=== PATIENT | male | born 1945 | race Hispanic/Latino ===

== ENCOUNTER 2022-12-19 14:07 | Inpatient (IN) | payer OTHER ==
--- NOTE | 2022-12-19 15:16 | RAD REPORT ---
EXAM DESCRIPTION: RAD - Chest Single View - 12/19/2022 3:11 pm CLINICAL HISTORY: Confusion/weakness Chest pain. COMPARISON: No comparisons FINDINGS: Portable technique limits examination quality. The lungs are grossly clear. The heart is normal in size. No displaced fractures.Postsurgical changes of prior CABG. IMPRESSION: No acute intrathoracic process suspected.
--- NOTE | 2022-12-19 15:22 | RAD REPORT ---
EXAM DESCRIPTION: CT - Head Brain Wo Cont - 12/19/2022 3:14 pm CLINICAL HISTORY: CONFUSED Headache, drowsiness COMPARISON: No comparisons TECHNIQUE: All CT scans are performed using dose optimization technique as appropriate and may inclu de automated exposure control or mA/KV adjustment according to patient size. FINDINGS: No intracranial hemorrhage, hydrocephalus or extra-axial fluid collection.Moderate brain a trophy.No areas of brain edema or evidence of midline shift. The paranasal sinuses and mastoids are clear. The calvarium is intact. IMPRESSION: No acute intracranial abnormality.
[2022-12-19 15:29] LABS: Absolute Lymphocytes (CBC) 0.7 K/uL (0.7-4.9); Lymphocytes % 9.4 % (15.3-44.8); MCV 91.3 fL (80-100); MPV 9.2 fL (7.6-11.3); Platelets 119 thou/uL (152-406); RBC Red Blood Cell Count 3.95 M/uL (4.33-5.43)
[2022-12-19 15:33] LABS: Protime INR 1.35
[2022-12-19 15:49] LABS: Albumin 3.7 g/dL (3.4-5.0); Bilirubin Direct 0.3 mg/dL (0-0.2); Bilirubin Indirect, Calculated 0.5 mg/dL (0.2-0.8); Bilirubin Total 0.8 mg/dL (0.2-1.0); Potassium 3.9 mEq/L (3.5-5.1); Troponin High Sensitivity 19.1 pg/mL (<58.9)
[2022-12-19 16:43] LABS: Specific Gravity 1.015 (1.005-1.030); Urine Bacteria None Seen /HPF (<20); Urine Bilirubin NEGATIVE (Negative); Urine Blood 1+ (Negative); Urine Clarity Turbid (Clear); Urine Color Yellow (Yellow); Urine Glucose TRACE (Negative); Urine Mucus Slight /HPF (None Seen); Urine Protein TRACE (Negative); Urine RBC <5 /HPF (None Seen); Urine Urobilinogen 2+ (Normal)
--- NOTE | 2022-12-19 16:55 | EDPHYS ---
Physician Documentation [facility] Name: Chaparro Palencia Age: 77 yrs Sex: Male : 1945 Arrival Date: 12/19/2022 Time: 14:07 Bed 16 Private MD: ED Physician Daphne Claire HPI: 12/19 16:07 This 77 yrs old Male presents to ER via Wheelchair with complaints of CONFUSSION, Fall sp3 Injury - 3 years ago. 16:07 77-year-old male with a history of diabetes, hypertension, hyperlipidemia who is from [address] here visiting his son who is a local worker presents to the ED with 24 to 48 hours of increased generalized weakness and episodes of confusion where he is asking odd questions not consistent with the active conversation. Symptoms come and go and have currently resolved. No dysarthria reported. No focal neurological symptoms reported either including weakness or abnormal gait. He did have to be assisted to the restroom yesterday which is not typical. Patient denies any headache, changes in vision, fever, neck pain, chest pain, shortness of breath, abdominal pain, nausea, vomiting, diarrhea, rash, numbness or tingling, changes in bowel or bladder patterns, or any other signs or symptoms on ROS at this time.. Historical: - Allergies: 14:31 No Known Allergies; nj1 - PMHx: 14:31 Diabetes mellitus; Hypertensive disorder; Hypercholesterolemia; nj1 - PSHx: 14:31 Coronary artery bypass graft; nj1 14:32 Appendectomy; nj1 - Immunization history:: Client reports receiving the 2nd dose of the Covid vaccine. - Social history:: Smoking status: Patient denies any tobacco usage or history of. ROS: 16:09 Eyes: Negative for injury, pain, redness, and discharge, ENT: Negative for injury, sp3 pain, and discharge, Neck: Negative for injury, pain, and swelling, Cardiovascular: Negative for chest pain, palpitations, and edema, Respiratory: Negative for shortness of breath, cough, wheezing, and pleuritic chest pain, Abdomen/GI: Negative for abdominal pain, nausea, vomiting, diarrhea, and constipation, Back: Negative for injury and pain, MS/Extremity: Negative for injury and deformity, Skin: Negative for injury, rash, and discoloration, Psych: Negative for depression, anxiety, suicide ideation, homicidal ideation, and hallucinations, Allergy/Immunology: Negative for hives, rash, and allergies, Endocrine: Negative for neck swelling, polydipsia, polyuria, polyphagia, and marked weight changes, Hematologic/Lymphatic: Negative for swollen nodes, abnormal bleeding, and unusual bruising. 16:09 All other systems are negative. Exam: 16:09 Constitutional: This is a well developed, well nourished patient who is awake, alert, sp3 and in no acute distress. Head/Face: Normocephalic, atraumatic. Eyes: Pupils equal round and reactive to light, extra-ocular motions intact. Lids and lashes normal. Conjunctiva and sclera are non-icteric and not injected. Cornea within normal limits. Periorbital areas with no swelling, redness, or edema. Neck: Trachea midline, no thyromegaly or masses palpated, and no cervical lymphadenopathy. Supple, full range of motion without nuchal rigidity, or vertebral point tenderness. No Meningismus. Chest/axilla: Normal chest wall appearance and motion. Nontender with no deformity. No lesions are appreciated. Cardiovascular: Regular rate and rhythm with a normal S1 and S2. No gallops, murmurs, or rubs. Normal PMI, no JVD. No pulse deficits. Respiratory: Lungs have equal breath sounds bilaterally, clear to auscultation and percussion. No rales, rhonchi or wheezes noted. No increased work of breathing, no retractions or nasal flaring. Abdomen/GI: Soft, non-tender, with normal bowel sounds. No distension or tympany. No guarding or rebound. No evidence of tenderness throughout. Back: No spinal tenderness. No costovertebral tenderness. Full range of motion. Skin: Warm, dry with normal turgor. Normal color with no rashes, no lesions, and no evidence of cellulitis. MS/ Extremity: Pulses equal, no cyanosis. Neurovascular intact. Full, normal range of motion. Neuro: Awake and alert, GCS 15, oriented to person, place, time, and situation. Cranial nerves II-XII grossly intact. Motor strength 5/5 in all extremities. Sensory grossly intact. Cerebellar exam normal. Normal gait. Psych: Awake, alert, with orientation to person, place and time. Behavior, mood, and affect are within normal limits. 16:09 ECG was reviewed by the Attending Physician. EKG demonstrates normal sinus rhythm at 65 bpm with normal intervals, normal QRS, normal axis, normal ST/T-segment's without evidence of acute ischemia. Vital Signs: 14:27 BP 120 / 50; Pulse 73; Resp 17; Temp 98.4(O); Pulse Ox 99% on R/A; Weight 51.26 kg; nj1 Height 5 ft. 8 in. ; 15:13 BP 111 / 42; Pulse 66; Resp 16; Pulse Ox 98% on R/A; db 16:19 BP 120 / 48; Pulse 59; Resp 16; Pulse Ox 99% on R/A; db 17:00 BP 145 / 60; Pulse 66; Resp 16; Pulse Ox 100% on R/A; db 18:43 BP 140 / 44; Pulse 75; Resp 16; Pulse Ox 100% on R/A; db 14:27 Body Mass Index 17.18 (51.26 kg, 172.72 cm) nj1 MDM: 14:45 Patient medically screened. sp3 16:10 Data reviewed: vital signs, nurses notes, lab test result(s), EKG, radiologic studies. sp3 ED course: 77-year-old male with PMH above now presents with off-and-on symptoms of generalized weakness and confusion. No focal neurodeficits noted. I am not highly suspicious for stroke or other embolic event. Will obtain broad work-up including CT scan of the head, laboratory values, chest x-ray, urine analysis, infectious swabs including COVID and flu. Patient has a normal exam currently. If work-up is negative will consider 23-hour ops versus discharge depending on follow-up conditions and options the patient has. Other interventions will be added as indicated.. 16:52 ED course: CT and work-up demonstrate no significant findings. Given his history of sp3 abnormal behavior, MRI and neurologic consult is warranted. Will admit patient to hospitalist service and consult Dr. Powell.. 12/19 14:57 Order name: Basic Metabolic Panel; Complete Time: 16:27 sp3 12/19 14:57 Order name: CBC with Diff; Complete Time: 15:37 sp3 12/19 14:57 Order name: LFT's; Complete Time: 16:27 sp3 12/19 14:57 Order name: Magnesium; Complete Time: 16:27 sp3 12/19 14:57 Order name: NT PRO-BNP; Complete Time: 16:27 sp3 12/19 14:57 Order name: PT-INR; Complete Time: 15:37 sp3 12/19 14:57 Order name: Troponin HS; Complete Time: 16:27 sp3 12/19 14:57 Order name: UAM; Complete Time: 16:45 sp3 12/19 15:37 Order name: SARS-COV-2 RT PCR; Complete Time: 17:45 sp3 12/19 15:37 Order name: Flu; Complete Time: 16:27 sp3 12/19 18:01 Order name: Lipid Profile EDMS 12/19 18:01 Order name: Hemoglobin A1c EDMS 12/19 18:01 Order name: CBC with Automated Diff EDMS 12/19 18:01 Order name: CBC with Automated Diff EDMS 12/19 18:01 Order name: Comprehensive Metabolic Panel EDMS 12/19 18:01 Order name: Comprehensive Metabolic Panel EDMS 12/19 18:01 Order name: Magnesium EDMS 12/19 18:01 Order name: Magnesium EDMS 12/19 18:01 Order name: Phosphorus EDMS 12/19 18:01 Order name: Phosphorus EDMS 12/19 14:57 Order name: XRAY Chest (1 view); Complete Time: 15:37 sp3 12/19 14:57 Order name: CT Head Brain wo Cont; Complete Time: 15:37 sp3 12/19 17:22 Order name: CT Neck Angio; Complete Time: 19:07 snw 12/19 17:22 Order name: CT Head Angio; Complete Time: 19:07 snw 12/19 18:01 Order name: Echo with Doppler EDMS 12/19 18:01 Order name: Brain With Cont EDMS 12/19 14:57 Order name: EKG; Complete Time: 14:58 sp3 12/19 18:01 Order name: Occupational Therapy Consult EDMS 12/19 18:01 Order name: Physical Therapy Consult EDMS 12/19 18:01 Order name: Speech Therapy Consult EDMS 12/19 14:57 Order name: Cardiac monitoring; Complete Time: 16:33 sp3 12/19 14:57 Order name: EKG - Nurse/Tech; Complete Time: 15:53 sp3 12/19 14:57 Order name: IV Saline Lock; Complete Time: 16:33 sp3 12/19 14:57 Order name: Labs collected and sent; Complete Time: 16:33 sp3 12/19 14:57 Order name: O2 Per Protocol; Complete Time: 16:33 sp3 12/19 14:57 Order name: O2 Sat Monitoring; Complete Time: 16:33 sp3 Administered Medications: No medications were administered Disposition Summary: 12/19/22 16:54 Hospitalization Ordered Hospitalization Status: Observation sp3 Provider: Jesus Huff sp3 Location: Telemetry/MedSurg (observation) sp3 Condition: Stable sp3 Problem: new sp3 Symptoms: are unchanged sp3 Bed/Room Type: Standard sp3 Room Assignment: 417(12/19/22 19:33) cg Diagnosis - Confusion, TIA sp3 Forms: - Medication Reconciliation Form sp3 - SBAR form sp3 - Leadership Thank You Letter sp3 Signatures: Dispatcher [employer] EDMS Serge Brewster FNP-C LARGE SHEETFED PRESS OPERATOR-Cla1 Inga Mancuso RN RN cg Daphne Claire MD MD sp3 Marija Olsen RN RN nj1 Corrections: (The following items were deleted from the chart) 19:33 16:54 sp3 cg
--- NOTE | 2022-12-19 16:55 | ER ---
Nurse's Notes [facility] Name: Chaparro Palencia Age: 77 yrs Sex: Male : 1945 Arrival Date: 12/19/2022 Time: 14:07 Bed 16 Private MD: Diagnosis: Confusion, TIA Presentation: 12/19 14:27 Chief complaint: Patient's son or daughter states: Generalized weakness and some nj1 confusion since yesterday at around this time. Coronavirus screen: Vaccine status: Patient reports receiving the 2nd dose of the covid vaccine. Ebola Screen: Patient denies travel to an Ebola-affected area in the 21 days before illness onset. Initial Sepsis Screen: Does the patient meet any 2 criteria? No. Patient's initial sepsis screen is negative. Initial Sepsis Screen: Does the patient have a suspected source of infection? No. Patient's initial sepsis screen is negative. Risk Assessment: Do you want to hurt yourself or someone else? Patient reports no desire to harm self or others. Onset of symptoms was December 18, 2022. 14:27 Method Of Arrival: Wheelchair nj1 14:27 Acuity: ENDER 3 nj1 Triage Assessment: 18:06 General: Appears in no apparent distress. db Historical: - Allergies: 14:31 No Known Allergies; nj1 - PMHx: 14:31 Diabetes mellitus; Hypertensive disorder; Hypercholesterolemia; nj1 - PSHx: 14:31 Coronary artery bypass graft; nj1 14:32 Appendectomy; nj1 - Immunization history:: Client reports receiving the 2nd dose of the Covid vaccine. - Social history:: Smoking status: Patient denies any tobacco usage or history of. Screenin:21 [facility] ED Fall Risk Assessment (Adult) History of falling in the last 3 months, db including since admission Yes- single mechanical fall (1 pt) Confusion or Disorientation No (0 pts) Intoxicated or Sedated No (0 pts) Impaired Gait Yes (1 pt) Mobility Assist Device Used No (0 pt) Altered Elimination No (0 pt) Score/Fall Risk Level 3 or more points = High Risk Oriented to surroundings, Maintained a safe environment. Abuse screen: Denies threats or abuse. Denies injuries from another. Nutritional screening: No deficits noted. Tuberculosis screening: No symptoms or risk factors identified. Assessment: 15:09 Reassessment: PATIENT IN CT. db 15:20 Reassessment: Patient appears in no apparent distress at this time. Patient and/or db family updated on plan of care and expected duration. Pain level reassessed. Patient is alert, oriented x 3, equal unlabored respirations, skin warm/dry/pink. Reassessment: WEAKNESS RECENTLY. General: Appears in no apparent distress. comfortable, Behavior is calm, cooperative. Pain: Denies pain. Neuro: Level of Consciousness is awake, alert, obeys commands, Oriented to person, place, time, situation. Respiratory: Airway is patent Respiratory effort is even, unlabored, Respiratory pattern is regular, symmetrical. 15:45 Reassessment: Patient appears in no apparent distress at this time. Patient and/or db family updated on plan of care and expected duration. Pain level reassessed. Patient is alert, oriented x 3, equal unlabored respirations, skin warm/dry/pink. PATIENT AMBULATORY TO RESTROOM. 16:34 Reassessment: Patient appears in no apparent distress at this time. Patient and/or db family updated on plan of care and expected duration. Pain level reassessed. Patient is alert, oriented x 3, equal unlabored respirations, skin warm/dry/pink. 17:37 Reassessment: PATIENT AMBULATORY TO RESTROOM. db 17:37 Reassessment: INFORMED FAMILY PATIENT CAN HAVE CRACKERS AND IF TOLERATES HE CAN EAT db FOOD PER HOSPITAL FONDANT PUFF MAKER. 18:00 Reassessment: Patient appears in no apparent distress at this time. Patient and/or db family updated on plan of care and expected duration. Pain level reassessed. Patient is alert, oriented x 3, equal unlabored respirations, skin warm/dry/pink. patient ate and tolerated crackers. 18:54 Reassessment: Patient appears in no apparent distress at this time. Patient and/or db family updated on plan of care and expected duration. Pain level reassessed. Patient is alert, oriented x 3, equal unlabored respirations, skin warm/dry/pink. 19:56 Reassessment: report given to ALETHEA Dorsey. ha1 Vital Signs: 14:27 BP 120 / 50; Pulse 73; Resp 17; Temp 98.4(O); Pulse Ox 99% on R/A; Weight 51.26 kg; nj1 Height 5 ft. 8 in. ; 15:13 BP 111 / 42; Pulse 66; Resp 16; Pulse Ox 98% on R/A; db 16:19 BP 120 / 48; Pulse 59; Resp 16; Pulse Ox 99% on R/A; db 17:00 BP 145 / 60; Pulse 66; Resp 16; Pulse Ox 100% on R/A; db 18:43 BP 140 / 44; Pulse 75; Resp 16; Pulse Ox 100% on R/A; db 14:27 Body Mass Index 17.18 (51.26 kg, 172.72 cm) ut1 ED Course: 13:45 EKG done, by ED staff. aw1 14:10 Patient arrived in ED. mg5 14:14 Daphne Claire MD is Attending Physician. sp3 14:31 Triage completed. nj1 14:33 Arm band placed on left wrist. nj1 15:08 Patti Briscoe, RN is Primary Nurse. db 15:13 XRAY Chest (1 view) In Process Unspecified. EDMS 15:15 CT Head Brain wo Cont In Process Unspecified. EDMS 15:18 Inserted saline lock: 20 gauge in left antecubital area, using aseptic technique. Blood db collected. 16:34 Patient has correct armband on for positive identification. Bed in low position. Call db light in reach. Side rails up X 1. Client placed on continuous cardiac and pulse oximetry monitoring. NIBP monitoring applied. 16:53 Jesus Huff MD is Hospitalizing Provider. sp3 18:31 CT Neck Angio In Process Unspecified. EDMS 18:31 CT Head Angio In Process Unspecified. EDMS 18:50 by nj, sent to lab. db 19:40 Primary Nurse role handed off by Patti Briscoe, ALETHEA wm 19:56 No provider procedures requiring assistance completed. Patient admitted, IV remains in ha1 place. Administered Medications: No medications were administered Medication: 16:34 VIS not applicable for this client. db Outcome: 16:54 Decision to Hospitalize by Provider. sp3 20:28 Patient left the ED. ha1 Signatures: Dispatcher [employer] EDMS Krupa Gonzalez Daphne Claire MD MD sp3 Carmen Eisenberg RN RN 1 Patti Briscoe, ALETHEA CLAIRE db Marija Olsen RN RN nj1 Yee Teixeira aw1 Erika Cardona mg5
--- NOTE | 2022-12-19 17:30 | P.HP ---
Certification for Inpatient Patient admitted to: Inpatient With expected LOS: <2 Midnights Patient will require the following post-hospital care: None Practitioner: I am a practitioner with admitting privileges, knowledge of patient current condition, hospital course, and medical plan of care. Services: Services provided to patient in accordance with Admission requirements found in Title 42 Section 412.3 of the Code of Federal Regulations Patient History Date of Service: 12/19/22 Reason for admission: Weakness, slurred speech History of Present Illness: Patient is a 77-year-old male presented to the ER via the wheelchair with complaints of confusion and weakness. Past medical history of diabetes, hypertension, hyperlipidemia, fall resulting in subdural hematoma 3 years ago, and CABG 20 years ago. Patient is visiting his son when symptoms began 24-48 hours ago consistent with weakness, slurred speech, and unclear conversation. Patient and family deny fall or injury prior to this episode. While in the ED blood pressure 120/50, pulse 73, respirations 17, temp 98.4, pulse ox 99% on room air, CT head negative for hemorrhage hydrocephalus or extra axial fluid collection, moderate brain atrophy. No areas of brain edema or evidence of midline shift, significant labs PT/INR 14.9/1.35, BNP 783, platelets 119k, UA negative, COVID-positive. At time of examination symptoms seem resolved, strength to bilateral upper and lower extremities 5 out of 5, conversation presents alert and oriented, smile symmetrical, the rest of the examination is afocal. Of note, patient speaks Kiswahili with son and daughter in law at bedside. Will admit patient for extensive stroke work up and treatment. Allergies No Known Allergies Allergy (Unverified 12/19/22 17:27) - Past Medical/Surgical History Has patient received pneumonia vaccine in the past: No Diabetic: Yes -: HTN, HLD, DM2, Subdural hematoma x 3 years ago -: CABG x 20 years ago - Social History Smoking Status: Never smoker Alcohol use: No CD- Drugs: No Place of Residence: Home Review of Systems 10-point ROS is otherwise unremarkable Physical Examination - Physical Exam General: Alert, Oriented x3, Cachectic HEENT: Atraumatic, Normocephalic, PERRLA Neck: Supple, JVD not distended Respiratory: Clear to auscultation bilaterally, Normal air movement Cardiovascular: No edema, Normal pulses, Regular rate/rhythm, Normal S1 S2 Gastrointestinal: Normal bowel sounds, Soft and benign Integumentary: No rashes Neurological: Normal speech, Normal strength at 5/5 x4 extr, Cranial nerves 3-12 intact - Studies Laboratory Data (last 24 hrs) 12/19/22 12/19/22 12/19/22 15:18 15:18 15:18 WBC 7.70 Hgb 12.8 L Hct 36.0 L Plt Count 119 L PT 14.9 H INR 1.35 Sodium 136 Potassium 3.9 BUN 18 Creatinine 1.25 Glucose 175 H Magnesium 2.0 Total Bilirubin 0.8 AST 15 ALT 20 Alkaline Phosphatase 52 Microbiology Data (last 24 hrs): 12/19/22 15:40 Nasopharnyx Influenza Type A Antigen Screen - Final 12/19/22 15:40 Nasopharnyx Influenza Type B Antigen Screen - Final Assessment and Plan - Plan Assessment and plan Weakness, slurred speech, confusion likely related to CVA History of subdural hematoma x 3 years d/t trauma fall -CT head neg -CTA head and neck, ECHO-pending -UA neg -Lipid panel, A1C, TSH -Consult PT/OT/NETWORK/TELECOM ENGINEER -ASA/Palvix on hold until CTA head results -Continue home Statin -Neurology consulted and called -Fall risk -aspiration precautions COVID positive -Airborne precautions -supportive care Thrombocytopenia -Platelets 119K -monitor in AM labs DM2 -hold antidiabetic for now -Accucheck with SSI -Consistent carb diet HTN -Continue home medications -BP stable in ED HLD -continue home statin -lipid panel in the AM DVT PPX: SCD for now Full code consistent carb diet Dispo: expecting discharge home with family support, will update if changes occur - Advance Directives Does patient have a Living Will: No Does patient have a Durable POA for Healthcare: No - Code Status/Comfort Care Code Status Assessed: Yes Code Status: Full Code Critical Care: No Time Spent Managing Pts Care (In Minutes): 50
--- NOTE | 2022-12-19 18:36 | RAD REPORT ---
EXAM DESCRIPTION: CT - Neck Angio - 12/19/2022 6:29 pm CLINICAL HISTORY: AMS Headache, dizziness, drowsiness COMPARISON: <Comparisons> TECHNIQUE: CT angiography of the neck vessels was performed with MIPs. All CT scans are performed using dose optimization technique as appropriate and may include automated exposure control or mA/KV adjustment according to patient size. FINDINGS: A left aortic arch is identified with normal three vessel configuration of the great vesse ls. No significant flow abnormality is seen of the common carotid bilaterally. Small amount of plaque is seen left carotid bulb resulting in mild carotid no narrowing. Moderate kareem rowing of the right carotid bulb is present estimated 50% based on NASCET criteria. Normal flow is seen within both vertebral arteries. Linear scarring is seen in the posterior right upper lobe. IMPRESSION: Moderate stenosis estimated at 50% based on NASCET criteria seen right carotid bulb. NASCET criteria used. Mild 0-49% stenosis Moderate 50-69% stenosis Severe 70-99% stenosis
[2022-12-19] MEDS ORDERED: D10W 250 ML BAG IV PRN (18:38)
[2022-12-19] MEDS ORDERED: GLUCAGON 1 MG/VIAL IM PRN (18:38)
--- NOTE | 2022-12-19 18:38 | RAD REPORT ---
EXAM DESCRIPTION: CT - Head angio - 12/19/2022 6:29 pm CLINICAL HISTORY: CONFUSED Headache, drowsiness COMPARISON: <Comparisons> TECHNIQUE: CT angiography of the head was performed with MIPs. All CT scans are performed using dose optimization technique as appropriate and may include automated exposure control or mA/KV adjustment according to patient size. FINDINGS: No evidence of large vessel occlusion. No evidence of aneurysm is detected. No flow-limiti ng stenosis or vascular malformation identified. Antegrade flow is seen in the vertebral arteries. The vertebral arteries are codominant. The visualized dural venous sinuses are patent. IMPRESSION: No significant flow abnormality is detected.
[2022-12-19 20:57] VITALS: O2SAT 100
[2022-12-19] MEDS ORDERED: ROSUVASTATIN 10 MG TAB PO SCH (21:00)
[2022-12-19 21:28] VITALS: BMI 17.6
[2022-12-19] MEDS ORDERED: ACETAMINOPHEN 325 MG TABLET PO PRN (21:40)
[2022-12-20 07:26] LABS: Absolute Lymphocytes (CBC) 0.9 K/uL (0.7-4.9); Hematocrit 35.2 % (39.6-49.0); Lymphocytes % 12.4 % (15.3-44.8); MCV 91.9 fL (80-100); MPV 9.6 fL (7.6-11.3); Platelets 105 thou/uL (152-406); RBC Red Blood Cell Count 3.83 M/uL (4.33-5.43)
[2022-12-20] MEDS: INSULIN -REGULAR HUMAN 50 UNIT/0.5 ML ML SQ SCH ×2 (07:30→16:20)
[2022-12-20 07:42] LABS: Albumin 3.5 g/dL (3.4-5.0); Bilirubin Total 0.7 mg/dL (0.2-1.0); Magnesium 2.1 mg/dL (1.6-2.4); Phosphorus 2.1 mg/dL (2.5-4.9); Potassium 3.6 mEq/L (3.5-5.1); Protein, Total 6.8 g/dL (6.4-8.2)
[2022-12-20] MEDS: POTASS/SODIUM PHOSPHATE 1 PKT POWD.PACK PO SCH ×3 (08:00→10:00)
[2022-12-20] MEDS ORDERED: CLOPIDOGREL 75 MG TABLET PO SCH (09:00)
[2022-12-20] MEDS ORDERED: ASPIRIN EC 81 MG TAB PO SCH (09:00)
[2022-12-20] MEDS ORDERED: POTASSIUM CL SA 10 MEQ TAB PO ONE (09:00)
[2022-12-20] MEDS ORDERED: FOLIC ACID 1 MG TABLET PO SCH (09:00)
--- NOTE | 2022-12-20 09:48 | RAD REPORT ---
EXAM DESCRIPTION: CT - Head Brain Wo Cont - 12/20/2022 9:26 am CLINICAL HISTORY: syncope COMPARISON: Head angio dated 12/19/2022; Head Brain Wo Cont dated 12/19/2022 TECHNIQUE: Noncontrast head CT images ad were obtained without IV contrast. Multiplanar reformats we re generated and reviewed. All CT scans are performed using dose optimization technique as appropriate and may include automated exposure control or mA/KV adjustment according to patient size. FINDINGS: No intracranial hemorrhage, mass, or edema. Midline structures are unremarkable. Stable ventricular caliber with mild diffuse parenchymal volume loss. Asymmetric prominence of the ri ght frontal extra-axial space, stable, could be developmental, or related to a small stable chronic h ygroma. Contreras-white matter differentiation is preserved, without evidence of acute infarct. No abnormal extra- axial fluid collections. Mastoid air cells are well aerated. Mild mucosal thickening throughout the paranasal sinuses with a s mall air-fluid level in the left maxillary sinus. No acute bony findings. IMPRESSION: No evidence of an acute intracranial process. Stable findings as above. Mild inflammatory mucosal thickening throughout the paranasal sinuses with trace left maxillary sinus air-fluid level.
[2022-12-20] MEDS ORDERED: PNEUMOCOCCAL VACCINE 0.5 ML IMVAC ONE (12:00)
[2022-12-20] MEDS ORDERED: DOPAMINE/D5W 400 MG/250 ML BAG IV SCH ×3 (13:00→14:40)
[2022-12-20] MEDS ORDERED: ONDANSETRON 4 MG/2 ML VIAL ONE (13:31)
[2022-12-20] MEDS ORDERED: ONDANSETRON 4 MG/2 ML VIAL IV PRN (13:34)
--- NOTE | 2022-12-20 14:08 | RAD REPORT ---
EXAM DESCRIPTION: RADChest Single View12/20/2022 1:13 pm CLINICAL HISTORY: Left Subclavian central line placement COMPARISON: Chest Single View dated 12/19/2022; Head Brain Wo Cont dated 12/20/2022; Neck Angio dated 12/19/2022 TECHNIQUE: Portable AP view of the chest. FINDINGS: Left subclavian CVC in satisfactory position catheter tip projecting at the mid SVC. The l ungs are clear apart from right apical hazy opacification which may relate to scarring or airspace di sease as seen on the prior CTA neck. No pneumothorax or effusion. The cardiomediastinal contours are unchanged with sequelae of prior CABG. IMPRESSION: Left subclavian CVC in satisfactory position. No pneumothorax. Scarring versus early air space opacification at the right apex.
--- NOTE | 2022-12-20 14:37 | P.DS ---
Admission Date: 12/20/22 Discharge Date: 12/20/22 Comment: [facility] Discharge Condition: FAIR Reason for Admission: Weakness, slurred speech Consultations: 1. Neurology 2. Cardiology 3. General Surgery Hospital Course: DIAGNOSES: # Syncope secondary to Symptomatic Bradycardia with Pauses # Slurred Speech/Confusion - possible TIA - resolved # Viral Sepsis secondary to COVID-19 Infection # Coronary Artery Disease s/p CABG # Moderate Right Carotid Artery Stenosis # History of Subdural Hematoma (~ 3 years ago) # Type II Diabetes Mellitus # Hypertension # Hyperlipidemia HOSPITAL COURSE: Mr. Chaparro Tafoya is a 77 year old male with a past medical history significant for coronary artery disease s/p CABG, prior subdural hematoma (~ 3 years ago), type II diabetes mellitus, hypertension, and hyperlipidemia who was admitted to the [facility] on 12/19/2022 for confusion and slurred speech. He was admitted to the Medicine service as a stroke alert, but was outside the window for tenecteplase. His symptoms had completely resolved by the time of admission. His CT head revealed, "no acute intracranial abnormality." His CT head angiogram revealed, "no significant flow abnormality is detected." His CT neck angiogram revealed, "moderate stenosis estimated at 50% based on NASCET criteria seen right carotid bulb." Neurology was consulted and his case was reviewed with Dr. Powell. He recommended starting aspirin, rosuvastatin, clopidogrel, and folic acid. Overnight, he had no acute events; however, this morning he had a syncopal episode, where he became diaphoretic and lost consciousness for about 1 minute. Telemetry strip was reviewed and it appears that he was in sinus bradycardia. Per telemetry officer, he had a pause for 2-3 seconds at the time of the episode. Repeat CT head was obtained, which revealed, "no evidence of an acute intracranial process." Cardiology was consulted and he was evaluated by Dr. Jolley. He recommended starting a dopamine drip and initiating a transfer to [facility] for electrophysiology evaluation and pacemaker placement. Transfer was initiated and doc-to-doc was completed with Dr. Oquendo ([facility] transit authority police officer), who has generously accepted her for transfer. On 12/20/2022, he was seen on rounds and deemed medically stable for transfer. He and his family members were given the opportunity to ask questions and reported no further questions. Furthermore, all questions were answered to the best of my ability. A copy of this discharge summary will be sent to the above providers to facilitate continuity of care. Today, I personally spent 40 minutes on his case, of which greater than 50% of the time was spent in patient education, counseling, and coordination of care as described above. Vital Signs/Physical Exam: Temp Pulse Resp BP Pulse Ox 98.9 F 77 29 H 122/47 L 98 12/20/22 08:00 12/20/22 14:00 12/20/22 14:00 12/20/22 14:00 12/20/22 14:00 General: Alert, In no apparent distress, Oriented x3 HEENT: Atraumatic, Mucous membr. moist/pink, Sclerae nonicteric Neck: JVD not distended Respiratory: Normal air movement, Rhonchi/gurgles (faint, scattered) Cardiovascular: No edema, Regular rate/rhythm, Normal S1 S2, No rubs, No murmurs Gastrointestinal: Normal bowel sounds, Soft and benign, Non-distended, No tenderness, No rebound, No guarding Musculoskeletal: No clubbing Integumentary: No rashes Neurological: Normal speech, Normal affect Laboratory Data at Discharge: WBC 7.50 thou/uL (4.3-10.9) 12/20/22 06:57 Hgb 12.7 g/dL (13.6-17.9) L 12/20/22 06:57 Hct 35.2 % (39.6-49.0) L 12/20/22 06:57 Plt Count 105 thou/uL (152-406) L 12/20/22 06:57 PT 14.9 SECONDS (9.5-12.5) H 12/19/22 15:18 INR 1.35 12/19/22 15:18 Sodium 136 mEq/L (136-145) 12/20/22 06:57 Potassium 3.6 mEq/L (3.5-5.1) 12/20/22 06:57 BUN 14 mg/dL (7-18) 12/20/22 06:57 Creatinine 1.07 mg/dL (0.70-1.30) 12/20/22 06:57 Glucose 111 mg/dL (74-106) H 12/20/22 06:57 Phosphorus 2.1 mg/dL (2.5-4.9) L 12/20/22 06:57 Magnesium 2.1 mg/dL (1.6-2.4) 12/20/22 06:57 Total Bilirubin 0.7 mg/dL (0.2-1.0) 12/20/22 06:57 AST 15 U/L (15-37) 12/20/22 06:57 ALT 22 U/L (16-61) 12/20/22 06:57 Alkaline Phosphatase 46 U/L (45-117) 12/20/22 06:57 Triglycerides 41 mg/dL (<150) 12/19/22 18:50 Cholesterol 85 mg/dL (<200) 12/19/22 18:50 HDL Cholesterol 36 mg/dL (40-60) L 12/19/22 18:50 Cholesterol/HDL Ratio 2.36 12/19/22 18:50 Physician Discharge Instructions: - Transfer to [facility] Diet: NPO Activity: Bedrest Time spent managing pt's care (in minutes): 40
--- NOTE | 2022-12-20 15:18 | P.CNS ---
Date of Consult: 12/20/22 PC: I was asked to see this patient in regards to an emergent placement of subclavian catheter for vascular access. HPC: Patient has been hypotensive, with an irregular heartbeat, rate require pressor support. PSHx: Incision from previous open heart surgery, pacemakers etc. seen, no fracture clavicle PMHx: Cardiovascular disease Social Hx: No known allergies Sys R: Slovak-speaking only, but appears comfortable at the moment, O/E: Awake alert HEENT: Not jaundiced, mildly distended neck veins Chest: Chest movement equal bilaterally, no evidence of any clavicular fractures Abd: Negative Impression: Patient requires emergent vascular access for hypotension and cardiac instability Plan: When the patient is in the ICU, I will place a left subclavian line. The risks of this procedure have been discussed with the Slovak-speaking family. They understand and consent forms have been signed.
--- NOTE | 2022-12-20 15:22 | P.OP ---
Date of Service: 12/20/22 Findings and Operative Technique Preop: Lack of vascular access Postop diagnosis: The same Surgeon: Nabil Procedural technique: After obtaining a surgical timeout, the patient was positioned in the ICU bed with a roll between the shoulders. The area was then prepped with a chlorhexidine solution, draped in the usual aseptic manner. With the patient in Trendelenburg were able to infiltrate lidocaine into the subclavicular area on the left side of the patient. Using a finder needle to pass was made where we obtained a flash of blood. However we had to reposition the needle and on the second pass we again found good blood return. The guidewire was then passed down through this needle. The needle was removed, a small skin incision was made to widen the area so we could pass the small dilator over the guidewire. This having been done the catheter was now placed using a modified Seldinger technique technique. The guidewire was removed. The catheter was then flushed with normal saline and all its ports. It was then sutured in place and a sterile dressing was applied. At the end of the procedure he had been taken out of Trendelenburg, chest x-ray confirmed that the catheter was in good position and was functioning well, and he remained in the ICU. Estimated blood loss: Less than 10 cc. Chest x-ray confirms good position, no pneumothorax appreciated.
[2022-12-20] MEDS ORDERED: POTASSIUM PHOS IN 0.9 % NACL 15 MMOL/250 ML BAG IV ONE (15:45)
--- NOTE | 2022-12-20 16:09 | CON ---
Date of Consultation: 12/20/2022 Reason For Consultation: Syncope with cardiac pauses. History Of Present Illness: A 77-year-old male with history of hypertension, dyslipidemia, diabetes, coronary artery disease, status post CABG 20 years ago presented with generalized weakness, slurred speech and was stroke activation. In the hospital, has been passing out, and on telemetry, he has be en having pauses close to 3 seconds with complete heart block and then he flips back to normal sinus rhythm and he was tested positive for COVID. Past Medical History: As outlined above in HPI. Medications: Refer to reconciliation sheet for detailed list. Allergies: NO KNOWN DRUG ALLERGIES. Family History: No premature coronary artery disease or cancer. Social History: Does not smoke or drink. Does not use any drugs. Review of Systems: All systems were reviewed, they were negative except what was mentioned in HPI. Physical Examination: Vital Signs: Reviewed. Head and Neck: Pupils are equal, reactive to light. Intact eye movements. No JVD. No cervical lym phadenopathy. Neck is supple. Thyroid is not enlarged. Lungs: Clear to auscultation bilaterally. No rhonchi, rales, or crackles. No accessory muscle use. Heart: Regular rate and rhythm. Bradycardic. Abdomen: Soft, nontender. Bowel sounds positive. No organomegaly. No masses or hernia. No rigidi ty or rebound. Extremities: No clubbing, cyanosis. Intact pulses. Skin: No rashes. Neurologic: Alert, awake, oriented x3. No acute focal deficits appreciated. Investigations: BUN 14, creatinine 1.07. Troponins x3 are negative. NT-proBNP is borderline elevat ed. Assessment/recommendation: 1.Syncope with cardiac pauses and he is going into transient complete heart block produci ng syncope. I recommend transfer to [place] for EP evaluation for possible pacemaker implantation. In the interim, can use dopamine drip while waiting on the transfer and transcutaneous pacing pads to be in place. If this does not stabilize him, we will consider temporary intravenous pacemaker. 2.Coronary artery disease. Cardiac enzymes are negative. He will need a stress test as ischemia ne eds to be ruled out before consideration of pacemaker. 3.Dyslipidemia. Continue statin. 4.Positive COVID with high fever. Hemodynamically and clinically stable. SR/MODL Voice ID: [id number] Report ID: [id number]
[2022-12-20 20:29] VITALS: BP 115/54; TEMP 98.3
--- NOTE | 2022-12-23 16:57 | EKG ---
Test Date: 2022-12-20 Test Time: 11:26:29 Sole Cutter: TO MEASUREMENT RESULTS: Intervals: Rate: 59 CA: 140 QRSD: 84 QT: 398 QTc: 394 [place]: P: 62 CA: 140 QRS: 29 T: 59 INTERPRETIVE STATEMENTS: Sinus bradycardia Otherwise normal ECG Compared to ECG 12/19/2022 15:40:23 Sinus rhythm no longer present Electronically Signed On 12-23-22 16:47:48 CDT by Aubrey Jolley
--- NOTE | 2022-12-23 16:57 | EKG ---
Test Date: 2022-12-20 Test Time: 13:28:36 Client Analyst: MELBA MEASUREMENT RESULTS: Intervals: Rate: 88 WI: 140 QRSD: 86 QT: 456 QTc: 551 [place]: P: -88 WI: 140 QRS: 3 T: 65 INTERPRETIVE STATEMENTS: Unusual P axis, possible ectopic atrial rhythm Prolonged QT Abnormal ECG Compared to ECG 12/19/2022 15:40:23 Prolonged QT interval now present Sinus rhythm no longer present Electronically Signed On 12-23-22 16:47:36 CDT by Aubrey Jolley
--- NOTE | 2022-12-23 16:59 | EKG ---
Test Date: 2022-12-19 Test Time: 15:40:23 Block And Case Maker: DHRUV MEASUREMENT RESULTS: Intervals: Rate: 65 RI: 146 QRSD: 84 QT: 374 QTc: 388 [place]: P: 60 RI: 146 QRS: 14 T: 60 INTERPRETIVE STATEMENTS: Normal sinus rhythm Normal ECG No previous ECG available for comparison Electronically Signed On 12-23-22 16:48:40 CDT by Aubrey Jolley
== END 2022-12-20 20:15 | disposition short-term general hospital (02) | DRG 871 ==
LOC: ER 14:07 → ERHOLD 17:38 → 4TH 19:45 → 3RD-ICU 12-20 12:45 → OBSVTOIN 12-20 15:01
PROVIDERS: ADMIT Internal Medicine; ATTEND Internal Medicine
PROC: 02HV33Z Insertion of Infusion Device into Superior Vena Cava, Percutaneous Approach (ICD-10-PCS; principal; 2022-12-20)
DX: A41.89 Other specified sepsis (principal); U07.1 COVID-19; R64 Cachexia; Z68.1 Body mass index [BMI] 19.9 or less, adult; G45.9 Transient cerebral ischemic attack, unspecified; I44.2 Atrioventricular block, complete; E11.9 Type 2 diabetes mellitus without complications; I10 Essential (primary) hypertension; E78.00 Pure hypercholesterolemia, unspecified; D69.6 Thrombocytopenia, unspecified; I25.10 Atherosclerotic heart disease of native coronary artery without angina pectoris; R47.81 Slurred speech; R00.1 Bradycardia, unspecified; R41.0 Disorientation, unspecified; Z95.1 Presence of aortocoronary bypass graft; Z90.49 Acquired absence of other specified parts of digestive tract; Z79.899 Other long term (current) drug therapy
CPT/HCPCS: 36415; 70450; 70496; 70498; 71045; 80048; 80053; 80061; 80076; 81001; 82947; 83036; 83735; 83880; 84100; 84484; 85025; 85610; 87635; 87804; 93005; 99284; G0378; J1265; J2405; Q9967

== ENCOUNTER 2024-04-03 14:24 | Emergency (ER) | payer OTHER ==
[2024-04-03 14:45] LABS: Absolute Eosinophils 0.1 K/uL (0-0.5); Absolute Lymphocytes (CBC) 2.5 K/uL (0.7-4.9); Absolute Monocytes 0.7 K/uL (0.1-1.3); Absolute Neutrophil 3.3 K/uL (1.8-8.0); Basophils % 0.7 % (0-1.3); Eosinophils % 0.8 % (0-4.4); Hematocrit 38.6 % (39.6-49.0); Hemoglobin 12.9 g/dL (13.6-17.9); MCH 31.9 pg (27.0-35.0); MCHC 33.4 g/dL (32.0-36.0); MCV 95.5 fL (80-100); MPV 9.3 fL (7.6-11.3); Monocytes % 10.2 % (3.3-12.3); Neutrophils % 50.3 % (41.7-73.7); Platelets 171 thou/uL (152-406); RBC Red Blood Cell Count 4.04 M/uL (4.33-5.43); Red Cell Distribution Width 13.3 % (12.1-15.2)
[2024-04-03 15:05] LABS: Anion Gap 6.4 mEq/L (5.0-15.0); Potassium 4.4 mEq/L (3.5-5.1); Troponin High Sensitivity 6.2 pg/mL (<58.9)
--- NOTE | 2024-04-03 15:37 | RAD REPORT ---
Procedure: Chest Single View HISTORY: Cough COMPARISON: none FINDINGS: The lungs appear clear of acute infiltrate. No significant pleural effusion noted. The heart is normal size. 2022. Post surgical changes involve the chest IMPRESSION: No acute abnormality is displayed.
--- NOTE | 2024-04-03 16:52 | RAD REPORT ---
EXAM: CT brain without contrast HISTORY: Headache COMPARISON: 2022 TECHNIQUE: Multiple contiguous axial images were obtained and a CT of the brain without contrast.. Sagittal and coronal reconstruction performed. Automated exposure control, adjustment of the mA and/or kV according to patient size, and/or iterative reconstruction. Unless otherwise specified, incidental f indings do not require dedicated imaging follow-up FINDINGS: An intracranial bleed is not seen Ventricles are normal caliber No extra-axial fluid collection noted No significant hypodensity within the brain No fluid within the visualized sinuses or mastoids noted. IMPRESSION: No acute intracranial abnormality noted. If the patient continues to have symptoms to suggest an acute intracranial abnormality then MRI of th e brain would be recommended.
--- NOTE | 2024-04-03 17:20 | EDPHYS ---
Physician Documentation [facility] Name: Chaparro Rosenberg Age: 78 yrs Sex: Male : 1945 Arrival Date: 04/03/2024 Time: 14:24 Bed 8 Private MD: ED Physician Russel Jolley HPI: 04/03 15:51 This 78 yrs old Male presents to ER via EMS with complaints of Syncope. bo1 15:51 The patient has experienced syncope, collapsed, No LOC, passed out slowly next to the bo1 truck after getting up from a chair. Onset: The symptoms/episode began/occurred suddenly, just prior to arrival. Duration: This was a single episode. Current symptoms: Currently, the patient is not experiencing any symptoms. The patient has experienced a previous episode, 2019 with a head injury and "bleed". Episodes of weakness more often since 2020. Hx from pt's family. Historical: - Allergies: 14:40 No Known Allergies; jl7 - PMHx: 14:40 diabetes mellitus; Hypercholesterolemia; Hypertensive disorder; jl7 - PSHx: 14:40 Appendectomy; Coronary artery bypass graft; Stented artery; jl7 - Immunization history:: Adult Immunizations unknown. - Infectious Disease History:: Denies. - Social history:: Smoking status: unknown. ROS: 15:53 Constitutional: Negative for fever, chills, and weight loss bo1 15:53 Constitutional: Negative for fever, 15:53 Neck: Negative for pain with movement, pain at rest, 15:53 Cardiovascular: Negative for chest pain, 15:53 Respiratory: Negative for cough, shortness of breath, 15:53 Abdomen/GI: Negative for abdominal pain, 15:53 MS/extremity: Negative for acute changes, injury or acute deformity, 15:53 Skin: Negative for acute changes, 15:53 Neuro: Positive for dizziness, HEAD CHAR FILTER TANK TENDER to the "fainting" episode, Negative for altered mental status, 15:53 All other systems are negative, Exam: 17:07 Constitutional: This is a well developed, well nourished patient who is awake, alert, bo1 and in no acute distress. 17:07 Constitutional: The patient appears alert, awake, comfortable, Slightly hard of hearing (no aids present) speaks Turkish only 17:07 Head/face: Exam is negative for acute changes, obvious evidence of injury or deformity, 17:07 Eyes: Pupils: no acute changes, 17:07 Neck: External neck: is normal, no acute changes, tenderness, is not appreciated, 17:07 Chest/axilla: Exam negative for acute changes, Inspection: normal, no acute changes, 17:07 ECG was reviewed by the Attending Physician. 17:07 Respiratory: Exam negative for acute changes, the patient does not display signs of respiratory distress, Respirations: normal, no acute changes, Breath sounds: are clear throughout, 17:07 Abdomen/GI: Inspection: abdomen appears normal, 17:07 Musculoskeletal/extremity: Exam is negative for acute changes, 17:07 Skin: no rash present. 17:07 Neuro: Exam negative for Orientation: is normal, appropriate for stated age, no acute changes, Mentation: is normal, appropriate for stated age, no acute changes, per family, Vital Signs: 14:39 BP 127 / 81; Pulse 50; Resp 17; Temp 97.9; Pulse Ox 100% ; Pain 0/10; jl7 16:00 BP 123 / 68; Pulse 50; Resp 15; Pulse Ox 99% ; jl7 16:45 BP 133 / 56; Pulse 54; Resp 15; Pulse Ox 100% ; jl7 17:24 BP 119 / 51; Pulse 64; Resp 15; Pulse Ox 99% ; jl7 14:39 Pain Scale: Adult jl7 MDM: 14:30 Medical Screening Exam initiated bo1 17:11 Differential Diagnosis: vasovagal episode, Fall risk/tendency. Data reviewed: vital bo1 signs, lab test result(s), EKG, radiologic studies, CT scan, plain films. ED course: No indication for acute admission or obs. CT is negative as pt is on ASA. 04/03 14:27 Order name: Basic Metabolic Panel; Complete Time: 15:28 jl7 04/03 14:27 Order name: CBC with Diff; Complete Time: 15:28 jl7 04/03 14:27 Order name: Troponin HS; Complete Time: 15:28 jl7 04/03 14:27 Order name: XRAY Chest (1 view); Complete Time: 15:41 jl7 04/03 15:42 Order name: CT Head Brain wo Cont; Complete Time: 17:07 bo1 04/03 14:27 Order name: EKG; Complete Time: 14:27 jl7 12/15 14:27 Order name: Cardiac monitoring; Complete Time: 14:53 04/03 14:27 Order name: EKG - Nurse/Tech; Complete Time: 14:53 04/03 14:27 Order name: IV Saline Lock; Complete Time: 14:53 04/03 14:27 Order name: Labs collected and sent; Complete Time: 14:53 04/03 14:27 Order name: O2 Per Protocol; Complete Time: 14:53 04/03 14:27 Order name: O2 Sat Monitoring; Complete Time: : EC:07 Rate is 54 beats/min. Rhythm is regular. QRS [place] is Normal. NE interval is normal. QRS bo1 interval is normal. Q waves are Present in leads V1, V2. T waves are Normal. T waves are Inverted in leads aVR, V1. Clinical impression: Atrial Flutter and artifact from movement. Interpreted by me. Reviewed by me. Administered Medications: No medications were administered Disposition Summary: 04/03/24 17:19 Discharge Ordered Notes: Location: Home bo1 Problem: new bo1 Symptoms: have improved bo1 Condition: Stable bo1 Diagnosis - Fall on same level, unspecified bo1 - Syncope Near bo1 - Unspecified injury of head, initial encounter bo1 Followup: bo1 - With: Private Physician - When: Upon discharge from the Emergency Department - Reason: Recheck today's complaints, Continuance of care Discharge Instructions: - Discharge Summary Sheet bo1 - Head Injury, Adult bo1 - Near-Syncope bo1 Forms: - Medication Reconciliation Form bo1 - Antibiotic Education bo1 - Prescription Opioid Use bo1 - Patient Portal Instructions bo1 - Leadership Thank You Letter bo1 Signatures: Dispatcher [employer] Ruslan Roberts RN RN jl7 OeiRussel MD MD bo1
--- NOTE | 2024-04-03 17:20 | ER ---
Nurse's Notes [facility] Name: Chaparro Rosenberg Age: 78 yrs Sex: Male : 1945 Arrival Date: 04/03/2024 Time: 14:24 Bed 8 Private MD: Diagnosis: Fall on same level, unspecified;Syncope Near;Unspecified injury of head, initial encounter Presentation: 04/03 14:39 Chief complaint: EMS states: Toned out for syncope, did not hit head, hx of cardiac jl7 stent. Coronavirus screen: At this time, the client does not indicate any symptoms associated with coronavirus-19. Ebola Screen: No symptoms or risks identified at this time. Initial Sepsis Screen: Does the patient meet any 2 criteria? No. Patient's initial sepsis screen is negative. Does the patient have a suspected source of infection? No. Patient's initial sepsis screen is negative. Risk Assessment: Do you want to hurt yourself or someone else? Patient reports no desire to harm self or others. Onset of symptoms was April 03, 2024. Care prior to arrival: Medication(s) given: Normal saline infusion, 250mL IV initiated. 20 GA, in the left antecubital area. 14:39 Method Of Arrival: EMS: [facility] jl 14:39 Acuity: ENDER 2 jl7 Triage Assessment: 14:40 General: Appears in no apparent distress. uncomfortable, Behavior is calm, cooperative, jl7 appropriate for age. Pain: Denies pain. Neuro: Level of Consciousness is awake, alert, obeys commands, Oriented to person, place, time, situation, Reports a syncopal episode. Cardiovascular: Denies chest pain, Patient's skin is warm and dry. Respiratory: Airway is patent Respiratory effort is even, unlabored, Respiratory pattern is regular, symmetrical, Denies shortness of breath. Derm: Skin is pink, warm \T\ dry. Historical: - Allergies: 14:40 No Known Allergies; jl7 - PMHx: 14:40 diabetes mellitus; Hypercholesterolemia; Hypertensive disorder; jl7 - PSHx: 14:40 Appendectomy; Coronary artery bypass graft; Stented artery; jl7 - Immunization history:: Adult Immunizations unknown. - Infectious Disease History:: Denies. - Social history:: Smoking status: unknown. Screenin:42 [facility] ED Fall Risk Assessment (Adult) History of falling in the last 3 months, jl7 including since admission Yes- single mechanical fall (1 pt) Confusion or Disorientation No (0 pts) Intoxicated or Sedated No (0 pts) Impaired Gait No (0 pts) Mobility Assist Device Used No (0 pt) Altered Elimination No (0 pt) Score/Fall Risk Level 0 - 2 = Low Risk Oriented to surroundings, Maintained a safe environment. Abuse screen: Denies threats or abuse. Denies injuries from another. Nutritional screening: No deficits noted. Tuberculosis screening: No symptoms or risk factors identified. Assessment: 16:45 Reassessment: Patient appears in no apparent distress at this time. No changes from jl7 previously documented assessment. Patient and/or family updated on plan of care and expected duration. Pain level reassessed. Patient is alert, oriented x 3, equal unlabored respirations, skin warm/dry/pink. Patient denies pain at this time. 17:24 Reassessment: Dr. Jolley at bedside discussing results and POC. jl7 Vital Signs: 14:39 BP 127 / 81; Pulse 50; Resp 17; Temp 97.9; Pulse Ox 100% ; Pain 0/10; jl7 16:00 BP 123 / 68; Pulse 50; Resp 15; Pulse Ox 99% ; jl7 16:45 BP 133 / 56; Pulse 54; Resp 15; Pulse Ox 100% ; jl7 17:24 BP 119 / 51; Pulse 64; Resp 15; Pulse Ox 99% ; jl7 14:39 Pain Scale: Adult jl7 ED Course: 14:25 Patient arrived in ED. jl7 14:30 Russel Jolley MD is Attending Physician. bo1 14:40 Triage completed. jl7 14:42 Arm band placed on right wrist. jl7 14:42 Patient has correct armband on for positive identification. Provided Education on: use jl7 of call godwin. 14:42 Initial lab(s) drawn, by me, sent to lab. EKG done, by ED staff, reviewed by Russel Jolley MD. Maintain EMS IV. Dressing intact. Good blood return noted. Site clean \T\ dry. Gauge \T\ site: 20 Right AC. Flushed with 10 mL NS. 14:53 Jose Eduardo Espinosa, RN is Primary Nurse. bp 15:03 XRAY Chest (1 view) In Process Unspecified. EDMS 16:35 CT Head Brain wo Cont In Process Unspecified. EDMS 17:25 No provider procedures requiring assistance completed. jl7 17:46 IV discontinued, intact, bleeding controlled, No redness/swelling at site. Pressure jl7 dressing applied. Administered Medications: No medications were administered Medication: 14:42 VIS not applicable for this client. jl7 Outcome: 17:19 Discharge ordered by MD. santiago 17:46 Discharged to home via wheelchair, with family, jlBenji 17:46 Condition: stable 17:46 Discharge instructions given to patient, family, Instructed on discharge instructions, follow up and referral plans. Demonstrated understanding of instructions, follow-up care, 17:47 Patient left the ED. jl7 Signatures: Dispatcher [employer] Ruslan Roberts, RN RN jlJose Eduardo Slaughter, RN RN Russel López MD MD bo1
[2024-04-03 17:56] VITALS: TEMP 97.9
[2024-04-03 18:01] VITALS: BP 119/51; O2SAT 99
== END 2024-04-03 17:47 | disposition home or self-care (01) ==
LOC: ER 14:24
DX: R55 Syncope and collapse (principal); S09.90XA Unspecified injury of head, initial encounter; W18.30XA Fall on same level, unspecified, initial encounter; E11.9 Type 2 diabetes mellitus without complications; I10 Essential (primary) hypertension; Z95.1 Presence of aortocoronary bypass graft
CPT/HCPCS: 36415; 70450; 71045; 80048; 84484; 85025; 99284